=== PATIENT | female | born 1940 | race Caucasian/White ===

== ENCOUNTER 2021-10-04 07:53 | Inpatient (IN) ==
[2021-10-04] MEDS ORDERED: *HR* HYDROmorphone (PF) 1 MG/ML SYRINGE IM ONE (09:17)
[2021-10-04 10:33] LABS: Basophils # 0.1 K/mcL (0.0-0.2); Basophils % 0.5 %; Eosinophils # 0.1 K/mcL (0.0-0.6); Eosinophils % 0.9 %; Hematocrit 37.5 % (35.3-44.9); Hemoglobin 12.1 g/dL (11.5-15.4); Immature Granulocytes % 0.3 % (0-4); Lymphocytes # 1.6 K/mcL (0.6-4.6); Lymphocytes % 16.4 %; Mean Corpuscular HGB Conc 32.3 g/dL (31.6-35.5); Mean Corpuscular Hemoglobin 27.2 pg (28.0-33.3); Mean Corpuscular Volume 84.3 fL (83.0-100.0); Mean Platelet Volume 8.9 fL (9.4-12.4); Monocytes # 0.8 K/mcL (0.0-1.3); Monocytes % 8.2 %; Neutrophils # 7.1 K/mcL (1.6-8.9); Platelet Count 212 K/mcL (140-400); Red Blood Count 4.45 M/mcL (3.82-4.97); Red Cell Distribution Width 14.6 % (11.5-14.5); Segmented Neutrophils % 73.7 %; White Blood Count 9.7 K/mcL (4.3-11.1)
[2021-10-04 10:55] LABS: Alanine Aminotransferase 14 Units/L (7-52); Albumin 3.7 g/dL (3.5-5.7); Albumin/Globulin Ratio 1.4 (1.1-2.2); Alkaline Phosphatase 83 Units/L (34-104); Aspartate Amino Transferase 19 Units/L (13-39); BUN/Creatinine Ratio 28 (6-26); Bilirubin,Total 0.5 mg/dL (0.3-1.0); Blood Urea Nitrogen 21 mg/dL (8-23); Calcium 9.3 mg/dL (8.6-10.3); Carbon Dioxide 27 mEq/L (23-29); Chloride 102 mEq/L (98-107); Globulin 2.7 g/dL (2.4-3.5); Glucose 105 mg/dL (70-105); Osmolality,Calculated 289 (280-300); Potassium 3.8 mEq/L (3.5-5.1); Sodium 138 mEq/L (136-145); Total Protein 6.4 g/dL (6.4-8.9); eGFR For African Americans > 60 (> 60); eGFR For Non-African Americans > 60 (> 60)
[2021-10-04] MEDS ORDERED: Naloxone 0.4 MG/ML INJ IVP PRN (12:03)
[2021-10-04] MEDS ORDERED: Mag Hydrox/Al Hydrox/Simeth 30 ML UDC PO PRN (12:03)
[2021-10-04] MEDS ORDERED: Ondansetron ODT 4 MG TAB.RAPDIS SL PRN (12:03)
[2021-10-04] MEDS ORDERED: MOM Conc 10 ML UD.LIQ PO PRN (12:03)
[2021-10-04] MEDS ORDERED: Capsaicin 0.025% 60 GM TUBE TP PRN (15:11)
[2021-10-04] MEDS: Orphenadrine 100 MG TABLET.ER PO PRN (18:23)
[2021-10-04] MEDS: Melatonin 3 MG TABLET PO PRN (22:16)
[2021-10-05 03:05] LABS: Hematocrit 32.2 % (35.3-44.9); Hemoglobin 10.7 g/dL (11.5-15.4); Mean Corpuscular HGB Conc 33.2 g/dL (31.6-35.5); Mean Corpuscular Hemoglobin 27.9 pg (28.0-33.3); Mean Corpuscular Volume 83.9 fL (83.0-100.0); Mean Platelet Volume 9.3 fL (9.4-12.4); Platelet Count 215 K/mcL (140-400); Red Blood Count 3.84 M/mcL (3.82-4.97); Red Cell Distribution Width 14.7 % (11.5-14.5); White Blood Count 11.4 K/mcL (4.3-11.1)
[2021-10-05 03:28] LABS: BUN/Creatinine Ratio 22 (6-26); Blood Urea Nitrogen 20 mg/dL (8-23); Calcium 8.9 mg/dL (8.6-10.3); Carbon Dioxide 23 mEq/L (23-29); Chloride 103 mEq/L (98-107); Glucose 142 mg/dL (70-105); Magnesium 1.9 mg/dL (1.6-2.6); Osmolality,Calculated 283 (280-300); Sodium 134 mEq/L (136-145); eGFR For African Americans > 60 (> 60); eGFR For Non-African Americans 58 (> 60)
[2021-10-05] MEDS: *HR* Enoxaparin 40 MG/0.4 ML SYRINGE SQ SCH (06:33)
[2021-10-05] MEDS: Furosemide 20 MG TABLET PO SCH (08:06)
[2021-10-05] MEDS: Aspirin Enteric Coated 81 MG Tablet PO SCH (08:06)
[2021-10-05] MEDS: lisinopriL 5 MG TABLET PO SCH (08:06)
[2021-10-05] MEDS: polyethylene glycoL 3350 17 GM POWD.PACK PO SCH (08:07)
[2021-10-06] MEDS: Melatonin 3 MG TABLET PO PRN (00:01)
[2021-10-06] MEDS: *HR* Enoxaparin 40 MG/0.4 ML SYRINGE SQ SCH (05:53)
[2021-10-06] MEDS ORDERED: Menthol 1 EACH LOZENGE PO PRN (07:28)
[2021-10-06] MEDS: lisinopriL 5 MG TABLET PO SCH (09:06)
[2021-10-06] MEDS: Aspirin Enteric Coated 81 MG Tablet PO SCH (09:06)
[2021-10-06] MEDS: Furosemide 20 MG TABLET PO SCH (09:07)
[2021-10-06] MEDS: polyethylene glycoL 3350 17 GM POWD.PACK PO SCH (09:08)
[2021-10-06] MEDS: Orphenadrine 100 MG TABLET.ER PO PRN (14:43)
[2021-10-06 21:50] LABS: Bilirubin,Urine Negative (Negative); Blood,Urine Small (Negative); Clarity,Urine Ex.Turbid (Clear); Color,Urine Dark-Yellow (Yellow); Glucose,Urine (UA) Normal (Normal); Ketones,Urine Trace mg/dL (Negative); Leukocyte Esterase,Urine Large (Negative); Nitrite,Urine Negative (Negative); Protein,Urine 70 mg/dL (Neg-Trace); Specific Gravity,Urine 1.022 (1.010-1.025)
[2021-10-06 21:59] LABS: RBC,Urine 0-3 per hpf (0-3); WBC,Urine 50-100 per hpf (0-3)
[2021-10-06 22:00] LABS: Bacteria,Urine Moderate per hpf (None-Few); Squamous Epithelial Cell,Urine Few per hpf (None-Few)
[2021-10-06] MEDS: cefTRIAXone 1,000 MG in 0.9 % Sodium Chloride Mini Bag 100 ML IVPB SCH (23:58)
[2021-10-07] MEDS: Orphenadrine 100 MG TABLET.ER PO PRN (04:21)
[2021-10-07] MEDS: *HR* Enoxaparin 40 MG/0.4 ML SYRINGE SQ SCH (05:35)
[2021-10-07] MEDS: Aspirin Enteric Coated 81 MG Tablet PO SCH (08:31)
[2021-10-07] MEDS: cefTRIAXone 1,000 MG in 0.9 % Sodium Chloride Mini Bag 100 ML IVPB SCH (08:31)
[2021-10-07] MEDS: Acetaminophen 325 MG TABLET PO PRN ×2 (08:31→20:22)
[2021-10-07] MEDS: polyethylene glycoL 3350 17 GM POWD.PACK PO SCH (08:32)
[2021-10-07] MEDS: Melatonin 3 MG TABLET PO PRN (20:22)
[2021-10-08 01:23] LABS: Hemoglobin 8.3 g/dL (11.5-15.4); Mean Corpuscular HGB Conc 33.2 g/dL (31.6-35.5); Mean Corpuscular Hemoglobin 28.1 pg (28.0-33.3); Mean Corpuscular Volume 84.7 fL (83.0-100.0); Mean Platelet Volume 9.8 fL (9.4-12.4); Platelet Count 218 K/mcL (140-400); Red Blood Count 2.95 M/mcL (3.82-4.97); Red Cell Distribution Width 15.1 % (11.5-14.5); White Blood Count 10.7 K/mcL (4.3-11.1)
[2021-10-08 01:45] LABS: Calcium 8.5 mg/dL (8.6-10.3); Potassium 4.7 mEq/L (3.5-5.1)
[2021-10-08] MEDS: *HR* Enoxaparin 40 MG/0.4 ML SYRINGE SQ SCH (06:14)
[2021-10-08] MEDS: cefTRIAXone 1,000 MG in 0.9 % Sodium Chloride Mini Bag 100 ML IVPB SCH (07:59)
[2021-10-08] MEDS: Aspirin Enteric Coated 81 MG Tablet PO SCH (08:01)
[2021-10-08] MEDS: polyethylene glycoL 3350 17 GM POWD.PACK PO SCH (08:02)
[2021-10-08 09:43] LABS: Hematocrit 25.9 % (35.3-44.9); Hemoglobin 8.2 g/dL (11.5-15.4)
[2021-10-08] MEDS: 0.9 % Sodium Chloride 1,000 ML IVC SCH (11:13)
[2021-10-08] MEDS: Melatonin 3 MG TABLET PO PRN (19:41)
[2021-10-09] MEDS: 0.9 % Sodium Chloride 1,000 ML IVC SCH ×2 (01:38→11:36)
[2021-10-09] MEDS: *HR* Enoxaparin 40 MG/0.4 ML SYRINGE SQ SCH (05:44)
[2021-10-09 06:13] LABS: Hematocrit 22.8 % (35.3-44.9); Hemoglobin 7.5 g/dL (11.5-15.4); Mean Corpuscular HGB Conc 32.9 g/dL (31.6-35.5); Mean Corpuscular Hemoglobin 28.2 pg (28.0-33.3); Mean Corpuscular Volume 85.7 fL (83.0-100.0); Mean Platelet Volume 9.1 fL (9.4-12.4); Platelet Count 243 K/mcL (140-400); Red Blood Count 2.66 M/mcL (3.82-4.97); Red Cell Distribution Width 14.9 % (11.5-14.5); White Blood Count 6.3 K/mcL (4.3-11.1)
[2021-10-09 06:30] LABS: BUN/Creatinine Ratio 27 (6-26); Blood Urea Nitrogen 23 mg/dL (8-23); Calcium 8.5 mg/dL (8.6-10.3); Carbon Dioxide 22 mEq/L (23-29); Chloride 104 mEq/L (98-107); Glucose 97 mg/dL (70-105); Osmolality,Calculated 282 (280-300); Potassium 4.5 mEq/L (3.5-5.1); Sodium 134 mEq/L (136-145); eGFR For African Americans > 60 (> 60); eGFR For Non-African Americans > 60 (> 60)
[2021-10-09] MEDS: cefTRIAXone 1,000 MG in 0.9 % Sodium Chloride Mini Bag 100 ML IVPB SCH (07:28)
[2021-10-09] MEDS: Aspirin Enteric Coated 81 MG Tablet PO SCH (07:28)
[2021-10-09] MEDS: polyethylene glycoL 3350 17 GM POWD.PACK PO SCH (07:29)
[2021-10-09 14:42] LABS: Hematocrit 26.2 % (35.3-44.9); Hemoglobin 8.5 g/dL (11.5-15.4)
[2021-10-09] MEDS: Melatonin 3 MG TABLET PO PRN (19:28)
[2021-10-10 01:29] LABS: Hematocrit 22.5 % (35.3-44.9); Hemoglobin 7.2 g/dL (11.5-15.4); Mean Corpuscular Hemoglobin 27.6 pg (28.0-33.3); Mean Corpuscular Volume 86.2 fL (83.0-100.0); Mean Platelet Volume 9.1 fL (9.4-12.4); Platelet Count 255 K/mcL (140-400); Red Blood Count 2.61 M/mcL (3.82-4.97); Red Cell Distribution Width 14.9 % (11.5-14.5); White Blood Count 6.6 K/mcL (4.3-11.1)
[2021-10-10 01:58] LABS: BUN/Creatinine Ratio 22 (6-26); Blood Urea Nitrogen 18 mg/dL (8-23); Calcium 8.5 mg/dL (8.6-10.3); Carbon Dioxide 22 mEq/L (23-29); Chloride 105 mEq/L (98-107); Glucose 109 mg/dL (70-105); Osmolality,Calculated 282 (280-300); Potassium 4.6 mEq/L (3.5-5.1); Sodium 135 mEq/L (136-145); eGFR For African Americans > 60 (> 60); eGFR For Non-African Americans > 60 (> 60)
[2021-10-10 02:09] LABS: Folate 14.5 ng/mL (3.0-16.0)
[2021-10-10] MEDS: Aspirin Enteric Coated 81 MG Tablet PO SCH (07:22)
[2021-10-10] MEDS: polyethylene glycoL 3350 17 GM POWD.PACK PO SCH (07:23)
[2021-10-10] MEDS ORDERED: Isovue-370 500 ML BOTTLE IVP ONE (08:41)
[2021-10-10 08:53] LABS: Iron 18 mcg/dL (50-170)
[2021-10-10 13:34] LABS: Hematocrit 24.6 % (35.3-44.9); Hemoglobin 7.9 g/dL (11.5-15.4)
[2021-10-10] MEDS ORDERED: *HR* LORazepam 2 MG/ML VIAL IVP ONE (14:25)
[2021-10-11 01:19] LABS: Hematocrit 23.8 % (35.3-44.9); Hemoglobin 7.9 g/dL (11.5-15.4); Mean Corpuscular HGB Conc 33.2 g/dL (31.6-35.5); Mean Corpuscular Volume 84.4 fL (83.0-100.0); Mean Platelet Volume 8.9 fL (9.4-12.4); Platelet Count 300 K/mcL (140-400); Red Blood Count 2.82 M/mcL (3.82-4.97); Red Cell Distribution Width 14.6 % (11.5-14.5); White Blood Count 7.3 K/mcL (4.3-11.1)
[2021-10-11 01:37] LABS: BUN/Creatinine Ratio 20 (6-26); Blood Urea Nitrogen 14 mg/dL (8-23); Calcium 8.5 mg/dL (8.6-10.3); Carbon Dioxide 22 mEq/L (23-29); Chloride 104 mEq/L (98-107); Glucose 101 mg/dL (70-105); Osmolality,Calculated 281 (280-300); Potassium 4.2 mEq/L (3.5-5.1); Sodium 135 mEq/L (136-145); eGFR For African Americans > 60 (> 60); eGFR For Non-African Americans > 60 (> 60)
[2021-10-11] MEDS: Aspirin Enteric Coated 81 MG Tablet PO SCH (07:17)
[2021-10-11] MEDS: polyethylene glycoL 3350 17 GM POWD.PACK PO SCH (07:18)
[2021-10-11] MEDS: 0.9 % Sodium Chloride 1,000 ML IVC SCH (18:44)
[2021-10-11] MEDS: Orphenadrine 100 MG TABLET.ER PO PRN (20:36)
[2021-10-11] MEDS: Melatonin 3 MG TABLET PO PRN (22:37)
[2021-10-12 02:01] LABS: Hematocrit 24.6 % (35.3-44.9); Hemoglobin 7.7 g/dL (11.5-15.4); Mean Corpuscular HGB Conc 31.3 g/dL (31.6-35.5); Mean Corpuscular Hemoglobin 26.9 pg (28.0-33.3); Mean Platelet Volume 8.9 fL (9.4-12.4); Platelet Count 357 K/mcL (140-400); Red Blood Count 2.86 M/mcL (3.82-4.97); Red Cell Distribution Width 14.8 % (11.5-14.5); White Blood Count 7.6 K/mcL (4.3-11.1)
[2021-10-12 02:13] LABS: BUN/Creatinine Ratio 25 (6-26); Blood Urea Nitrogen 18 mg/dL (8-23); Calcium 8.4 mg/dL (8.6-10.3); Carbon Dioxide 24 mEq/L (23-29); Chloride 104 mEq/L (98-107); Glucose 101 mg/dL (70-105); Osmolality,Calculated 284 (280-300); Potassium 4.1 mEq/L (3.5-5.1); Sodium 136 mEq/L (136-145); eGFR For African Americans > 60 (> 60); eGFR For Non-African Americans > 60 (> 60)
[2021-10-12] MEDS: *HR* Acetaminophen w/Cod 300-30 mg 1 TAB TABLET PO PRN ×2 (03:43→16:47)
[2021-10-12] MEDS: polyethylene glycoL 3350 17 GM POWD.PACK PO SCH (09:04)
[2021-10-12] MEDS: Aspirin Enteric Coated 81 MG Tablet PO SCH (09:05)
[2021-10-12] MEDS: Orphenadrine 100 MG TABLET.ER PO PRN (09:39)
[2021-10-12] MEDS: 0.9 % Sodium Chloride 1,000 ML IVC SCH (12:37)
[2021-10-12] MEDS: Acetaminophen 325 MG TABLET PO PRN (12:37)
[2021-10-13 08:12] LABS: % Iron Saturation 7 % (15-50); Transferrin 186 mg/dL (200-400)
[2021-10-13] MEDS: Aspirin Enteric Coated 81 MG Tablet PO SCH (08:42)
[2021-10-13] MEDS: polyethylene glycoL 3350 17 GM POWD.PACK PO SCH (08:42)
[2021-10-13] MEDS: 0.9 % Sodium Chloride 1,000 ML IVC SCH (10:25)
[2021-10-13] MEDS: Acetaminophen 325 MG TABLET PO PRN (12:54)
[2021-10-13] MEDS: Melatonin 3 MG TABLET PO PRN (19:25)
[2021-10-14 01:17] LABS: Hematocrit 25.6 % (35.3-44.9); Mean Corpuscular HGB Conc 31.3 g/dL (31.6-35.5); Mean Corpuscular Hemoglobin 27.1 pg (28.0-33.3); Mean Corpuscular Volume 86.8 fL (83.0-100.0); Mean Platelet Volume 8.5 fL (9.4-12.4); Platelet Count 433 K/mcL (140-400); Red Blood Count 2.95 M/mcL (3.82-4.97); Red Cell Distribution Width 15.5 % (11.5-14.5); White Blood Count 7.3 K/mcL (4.3-11.1)
[2021-10-14 01:33] LABS: BUN/Creatinine Ratio 21 (6-26); Blood Urea Nitrogen 14 mg/dL (8-23); Calcium 8.5 mg/dL (8.6-10.3); Carbon Dioxide 24 mEq/L (23-29); Chloride 106 mEq/L (98-107); Glucose 116 mg/dL (70-105); Osmolality,Calculated 285 (280-300); Potassium 4.2 mEq/L (3.5-5.1); Sodium 137 mEq/L (136-145); eGFR For African Americans > 60 (> 60); eGFR For Non-African Americans > 60 (> 60)
[2021-10-14] MEDS: 0.9 % Sodium Chloride 1,000 ML IVC SCH (11:51)
[2021-10-14] MEDS: Aspirin Enteric Coated 81 MG Tablet PO SCH (11:53)
[2021-10-14] MEDS: polyethylene glycoL 3350 17 GM POWD.PACK PO SCH (11:53)
[2021-10-14 12:09] LABS: VBG HCO3 25 mEq/L (21-27); VBG PCO2 36 mmHg (41-51); VBG PH 7.46 pH Units (7.32-7.42); VBG PO2 178 mmHg (25-50)
[2021-10-15 02:43] LABS: Hematocrit 26.7 % (35.3-44.9); Hemoglobin 8.5 g/dL (11.5-15.4); Mean Corpuscular HGB Conc 31.8 g/dL (31.6-35.5); Mean Corpuscular Hemoglobin 28.1 pg (28.0-33.3); Mean Corpuscular Volume 88.4 fL (83.0-100.0); Mean Platelet Volume 8.6 fL (9.4-12.4); Platelet Count 453 K/mcL (140-400); Red Blood Count 3.02 M/mcL (3.82-4.97); Red Cell Distribution Width 15.4 % (11.5-14.5); White Blood Count 6.2 K/mcL (4.3-11.1)
[2021-10-15 02:48] LABS: BUN/Creatinine Ratio 17 (6-26); Blood Urea Nitrogen 10 mg/dL (8-23); Calcium 8.7 mg/dL (8.6-10.3); Carbon Dioxide 25 mEq/L (23-29); Chloride 106 mEq/L (98-107); Glucose 86 mg/dL (70-105); Osmolality,Calculated 282 (280-300); Sodium 137 mEq/L (136-145); eGFR For African Americans > 60 (> 60); eGFR For Non-African Americans > 60 (> 60)
[2021-10-15] MEDS: Acetaminophen 325 MG TABLET PO PRN ×2 (07:31→17:39)
[2021-10-15] MEDS: 0.9 % Sodium Chloride 1,000 ML IVC SCH (07:31)
[2021-10-15] MEDS: polyethylene glycoL 3350 17 GM POWD.PACK PO SCH (07:31)
[2021-10-15] MEDS: Aspirin Enteric Coated 81 MG Tablet PO SCH (07:32)
[2021-10-15] MEDS: Orphenadrine 100 MG TABLET.ER PO PRN (12:12)
[2021-10-15] MEDS: *HR* Acetaminophen w/Cod 300-30 mg 1 TAB TABLET PO PRN (20:58)
[2021-10-15] MEDS: Melatonin 3 MG TABLET PO PRN (23:24)
[2021-10-16] MEDS: 0.9 % Sodium Chloride 1,000 ML IVC SCH ×2 (03:20→21:59)
[2021-10-16] MEDS: polyethylene glycoL 3350 17 GM POWD.PACK PO SCH (07:46)
[2021-10-16] MEDS: Aspirin Enteric Coated 81 MG Tablet PO SCH (07:49)
[2021-10-17] MEDS: Aspirin Enteric Coated 81 MG Tablet PO SCH (08:11)
[2021-10-17] MEDS: polyethylene glycoL 3350 17 GM POWD.PACK PO SCH (08:12)
[2021-10-17] MEDS ORDERED: Iron Sucrose Complex 200 MG in 0.9 % Sodium Chloride 100 ML IVPB ONE (17:43)
[2021-10-17] MEDS: Melatonin 3 MG TABLET PO PRN (20:56)
[2021-10-18] MEDS: polyethylene glycoL 3350 17 GM POWD.PACK PO SCH (08:29)
[2021-10-18] MEDS: Aspirin Enteric Coated 81 MG Tablet PO SCH (08:30)
[2021-10-19] MEDS: *HR* Acetaminophen w/Cod 300-30 mg 1 TAB TABLET PO PRN (01:55)
[2021-10-19] MEDS: Aspirin Enteric Coated 81 MG Tablet PO SCH (09:43)
[2021-10-19] MEDS: polyethylene glycoL 3350 17 GM POWD.PACK PO SCH (09:44)
[2021-10-20 03:21] VITALS: TEMP 98.4
[2021-10-20 06:33] VITALS: BP 131/69; PULSE 65; O2SAT 96
[2021-10-20] MEDS: Aspirin Enteric Coated 81 MG Tablet PO SCH (08:45)
[2021-10-20] MEDS: polyethylene glycoL 3350 17 GM POWD.PACK PO SCH (08:45)
[2021-10-20 10:37] LABS: Adenovirus Not Detected (Not Detect); Bordetella Pertussis Not Detected (Not Detect); Chlamydophila pneumoniae Not Detected (Not Detect); Coronavirus 229E Not Detected (Not Detect); Coronavirus HKU1 Not Detected (Not Detect); Coronavirus NL63 Not Detected (Not Detect); Coronavirus OC43 Not Detected (Not Detect); Human Metapneumovirus Not Detected (Not Detect); Human Rhinovirus/Enterovirus Not Detected (Not Detect); Influenza A Subtype 2009 H1 Not Detected (Not Detect); Influenza B Not Detected (Not Detect); Mycoplasma pneumoniae Not Detected (Not Detect); Parainfluenza Virus 1 Not Detected (Not Detect); Parainfluenza Virus 2 Not Detected (Not Detect); Parainfluenza Virus 3 Not Detected (Not Detect); Parainfluenza Virus 4 Not Detected (Not Detect); Respiratory Syncytial Virus Not Detected (Not Detect); SARS-CoV-2 Not Detected (Not Detect)
== END 2021-10-20 12:21 | DRG 698 ==
LOC: EMEROOARM 07:53 → 3BNU 07:53 → SUATTDRO 12:20 → 3BNU 13:36 → SUATTDRO 10-07 13:36
PROVIDERS: ADMIT Internal Medicine; ATTEND Registered Nurse